=== PATIENT | female | born 1980 | race Caucasian/White ===

== ENCOUNTER 2023-07-09 00:35 | Observation (INO) | payer BC, OTHER ==
--- OUTSIDE RECORDS SUMMARY | 2023-07-09 00:40 | XMS REPORT | Continuity of Care Document ---
Author Name Unknown Address [address] [place] [address] [facility] Address [address] [facility] [place] [address] Care Team Providers Care Picker Packer Name Role Phone Gela Marte Primary Care Physician [phone] MECHELLE PORTER Attending Clinician Unavailable TOMA Attending Clinician Unavailable Monique Attending Clinician Unavailable Mitchell Aldridge MD Attending Clinician [phone] Unknown, Attending Attending Clinician Unavailab MITCHELL Gama Attending Clinician Unavailable Doctor Unassigned, [place] Attending Clinician U navailable Paula Daniel Attending Clinician [phone] PAULA PRIETO Attending Clinician Unavailable Gela Marte Attending Clinician [phone] Omaghomi PLASTIC SURGERY TECHNICIAN Omayemi Attending Clinician [phone] JANES Attending Clinician Unavailable Bette Attending Clinician Unavailable Provider, [facility] Attending Clinician Un available EbrahiLucy Rodriguez Attending Clinician [phone] LUCY YOUNGER Attending Clinician Unavailable ROSANNA_Cain Admitting Clinician Unavailable Monique Admitting Clinician Unavailable JANES Admitting Clinician Unavailable Bette Admitting Clinician Unavailable Payers Payer Name Policy Type Policy Number Effective Date Expirati on Date Source TSHBP 90 DEGREE AND BENEFITS [id number] 2021 00:00[facility]00 [facility] [id number] 2022 00:00:00 [facility] OPEN ACCESS [id number] 2022 00:00:00 [place] [id number] 2019 00:00:00 AETNESSA (EPO) [id number] 2015 00:00:00 Problems Condition Name Condition Details Condition Category Status Onset Date Resolution Date Last Treatment Date Treating Clinician Comments Source Cellulitis of lower limb Cellulitis of Lower Limb Problem Active 06-27 00:00: 00 [facility] Skin lesion Skin Lesion Problem Active 06-27 00:00: 00 [facility] Anxiety Anxiety Problem Active 2022-03 00:00: 00 [facility] Otitis media Otitis Media Problem Active 2022-03 00:00: 00 [facility] Seasonal allergic rhinitis Seasonal Allergic Rhinitis Problem Active 2022-03 0-11 00:00: 00 [facility] Chronic hoarseness Chronic Hoarseness Problem Active 9-21 00:00: 00 [facility] Polycystic ovary syndrome Polycystic ovary syndrome Disease Active 2021-03 1-14 00:00: 00 [facility] Acute sinusitis Acute Sinusitis Problem Active 2019-03 2 00:00: 00 [facility] Loss of sense of smell Loss of Sense of Smell Problem Active 2019-03 2 00:00: 00 [facility] Asthmatic bronchitis Asthmatic Bronchitis Problem Active 2019-03 1-19 00:00: 00 [facility] Vitamin D deficiency Vitamin D Deficiency Problem Active 2018-03 0- 00:00: 00 [facility] Hyperlipid emia Hyperlipid emia Problem Active 2018-03 0 00:00: 00 [facility] Hypothyroi dism Hypothyroi dism Problem Active 06-16 00:00: 00 [facility] Abscess Abscess Problem Active 06-16 00:00: 00 [facility] Acute otitis media Acute Otitis Media Problem Active 18 00:00: 00 [facility] Attention deficit hyperactiv ity disorder Attention Deficit Hyperactiv ity Disorder Problem Active 10-14 00:00: 00 [place] [facility] Vitamin B12 deficiency (non anemic) Vitamin B12 Deficiency (Non Anemic) Problem Active 09-07 00:00: 00 [place] [facility] Obstructiv e sleep apnea syndrome Obstructiv e Sleep Apnea Syndrome Problem Active 09-07 00:00: 00 [place] [facility] Malaise Malaise Problem Active 09-07 00:00: 00 [place] [facility] 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 Problem Active 08-17 00:00: 00 [place] [facility] Snoring Snoring Problem Active 08-17 00:00: 00 [place] [facility] Long-term drug therapy Long-term Drug Therapy Problem Active 08-17 00:00: 00 [place] [facility] Pain of right wrist Pain of Right Wrist Problem Active 08-17 00:00: 00 [place] [facility] Polycystic ovaries Polycystic Ovaries Problem Active 08-17 00:00: 00 [place] [facility] No known active problems No known active problems Disease [facility] Allergies, Adverse Reactions, Alerts Allergy Name Allergy Type Status Severity Reaction(s) Onset Date Inactive Date Treating Clinician Comments Source Sulfa (Sulfona mide Antibiot ics) Propensi ty to adverse reaction s Active Nausea and/or Vomiting 2019-03 00:00: 00 [facility] Penicill in Propensi ty to adverse reaction s Active Nausea and/or Vomiting 2019-03 00:00: 00 [facility] Sulfa (Sulfona mide Antibiot ics) Propensi ty to adverse reaction s Active Nausea and/or Vomiting 2019-03 00:00: 00 [facility] PENICILL IN DRUG INGREDI Active High N/V 2019-03 00:00: 00 [facility] SULFA (SULFONA MIDE ANTIBIOT ICS) Drug Class Active High N/V 2019-03 00:00: 00 [facility] NO KNOWN ALLERGIE S Drug Class Active [facility] PENICILL INS Allergy to substanc e Active [facility] SULFA (SULFONA MIDE ANTIBIOT ICS) Allergy to substanc e Active Moderate severity Rash [facility] Social History Social Habit Start Date Stop Date Quantity Comments [facility] of [facility] use Cigarette Smoker [facility] History SDOH Alcohol Comment [place] [facility] Exposure to SARS-CoV-2 (event) 2022-05-08 00:00:00 2022-05-18 13:16:[address] [facility] Alcohol intake 2022-05-18 00:00:00 2022-05-18 00:00:00 Lifetime non-drinker (finding) [facility] History of Social function 2022-04-02 00:00:00 2022-04-02 00:00:00 [facility] History SDOH Alcohol Std Drinks 2020-01-30 00:00:00 2020-01-30 00:00:[address] [facility] History SDOH Alcohol Binge 2020-01-30 00:00:00 2020-01-30 00:00:[address] [facility] History SDOH Alcohol Frequency 2020-01-30 00:00:00 2020-01-30 00:00:[address] [facility] Cigarettes smoked current (pack per day) - Reported 2020-01-29 00:00:00 2020-01-29 00:00:00 [facility] Tobacco use and exposure 2020-01-29 00:00:00 2020-01-29 00:00:00 Smokeless tobacco non-user [facility] Sex Assigned At 1980 00:00:00 1980 00:00:00 [facility] Smoking Status Start Date Stop Date Source Former Smoker [facility] Smokes tobacco daily 2020-01-29 00:00:00 [facility] Medications Ordered Medication Name Filled Medication Name Start Date Stop Date Current Medication? Ordering Clinician Indication Dosage Frequency Signature (SIG) Comments Components Source collagenase (SANTYL) 250 unit/gram ointment 07-06 00:00: 00 Yes [id number] Apply to affected area(s) daily. [facility] ceftriaxone 1 gram solution for injectionTa ke 1 g by injection route. ceftriaxone 1 gram solution for injectionTa ke 1 g by injection route. 07-05 14:43: 23 No ceftriaxon e 1 gram solution for injectionT dana 1 g by injection route. [facility] ceftriaxone 1 gram solution for injection Take 1 g by injection route. ceftriaxone 1 gram solution for injection Take 1 g by injection route. 07-04 17:41: 55 No 1g ceftriaxon e 1 gram solution for injection Take 1 g by injection route. [facility] benzonatate 100 mg capsule 05-18 00:00: 00 Yes [id number] 200mg Take 2 capsules by mouth every 8 (eight) hours as needed for Cough. [facility] doxycycline hyclate 100 mg tablet 05-18 00:00: 00 05-29 05:59 :00 No [id number] 100mg Take 1 tablet by mouth in the morning and 1 tablet in the evening. Do all this for 10 days. [facility] cephALEXin 500 mg tablet 04-02 00:00: 00 04-10 05:59 :00 No [id number] 500mg Take 1 tablet by mouth 4 (four) times daily for 7 days. [facility] ondansetron 4 mg disintegrat ing tablet 03-31 00:00: 00 04-02 00:00 :00 No [id number] 4mg Take 1 tablet by mouth every 8 (eight) hours as needed for Nausea and Vomiting (N/V). [facility] cephALEXin (KEFLEX) 500 mg capsule 2019-03 00:00: 00 02-14 05:59 :00 No [id number] 500mg Take 1 capsule by mouth 4 (four) times daily for 10 days. [facility] codeine-gua ifenesin 10-100 mg/5 mL solution 2019-03 00:00: 00 02-11 05:59 :00 No 10mL Take 10 mL by mouth every 6 (six) hours as needed for Cough for up to 7 days. Indication s: cough [facility] methylPREDN ISolone (MEDROL, DENAE,) 4 mg tablets 2019-03 00:00: 00 04-02 00:00 :00 No [id number] Take by mouth SEE-INSTRU CTIONS. follow package directions [facility] bromphenira mine-pseudo ephedrine-D M (BROMFED DM) 2-30-10 mg/5 mL syrup 2019-03 00:00: 00 02-08 05:59 :00 No [id number] 5mL Take 5 mL by mouth 4 (four) times daily as needed (zofra) for up to 10 days. [facility] ondansetron (ZOFRAN ODT) 4 mg disintegrat ing tablet 2019-03 00:00: 00 02-05 05:59 :00 No [id number] 4mg Take 1 tablet by mouth every 8 (eight) hours as needed for Nausea and Vomiting (N/V) for up to 7 days. [facility] albuterol sulfate HFA 90 mcg/actuati on aerosol inhaler TAKE 2 PUFF(S) INHALED 4 TIMES A DAY, NEEDED FOR WHEEZING albuterol sulfate HFA 90 mcg/actuati on aerosol inhaler TAKE 2 PUFF(S) INHALED 4 TIMES A DAY, NEEDED FOR WHEEZING No albuterol sulfate HFA 90 mcg/actuat ion aerosol inhaler TAKE 2 PUFF(S) INHALED 4 TIMES A DAY, NEEDED FOR WHEEZING [facility] 0.5 mg tablet TAKE 1/2-1 TABLET BY MOUTH EVERY 6 TO 8 HOURS NEEDED FOR EXTREME STRESS alprazolam 0.5 mg tablet TAKE 1/2-1 TABLET BY MOUTH EVERY 6 TO 8 HOURS NEEDED FOR EXTREME STRESS No alprazolam 0.5 mg tablet TAKE 1/2-1 TABLET BY MOUTH EVERY 6 TO 8 HOURS NEEDED FOR EXTREME STRESS [facility] clindamycin HCl 300 mg capsule TAKE 1 CAPSULE BY MOUTH EVERY 6 HOURS clindamycin HCl 300 mg capsule TAKE 1 CAPSULE BY MOUTH EVERY 6 HOURS No clindamyci n HCl 300 mg capsule TAKE 1 CAPSULE BY MOUTH EVERY 6 HOURS [facility] doxycycline hyclate 100 mg capsule TAKE 1 CAPSULE BY MOUTH TWICE A DAY doxycycline hyclate 100 mg capsule TAKE 1 CAPSULE BY MOUTH TWICE A DAY No 1capsul e(s) BID doxycyclin e hyclate 100 mg capsule TAKE 1 CAPSULE BY MOUTH TWICE A DAY [facility] metronidazo le 0.75 % (37.5 mg/5 gram) vaginal gel INSERT 1 APPLICATORF UL VAGINALLY EVERY DAY AT NIGHT metronidazo le 0.75 % (37.5 mg/5 gram) vaginal gel INSERT 1 APPLICATORF UL VAGINALLY EVERY DAY AT NIGHT No metronidaz ole 0.75 % (37.5 mg/5 gram) vaginal gel INSERT 1 APPLICATOR FUL VAGINALLY EVERY DAY AT NIGHT [facility] montelukast 10 mg tablet TAKE 1 TABLET BY MOUTH EVERY DAY montelukast 10 mg tablet TAKE 1 TABLET BY MOUTH EVERY DAY No montelukas t 10 mg tablet TAKE 1 TABLET BY MOUTH EVERY DAY [facility] mupirocin 2 % topical ointment APPLY A SMALL AMOUNT TO THE AFFECTED AREA BY TOPICAL ROUTE 3 TIMES PER DAY mupirocin 2 % topical ointment APPLY A SMALL AMOUNT TO THE AFFECTED AREA BY TOPICAL ROUTE 3 TIMES PER DAY No mupirocin 2 % topical ointment APPLY A SMALL AMOUNT TO THE AFFECTED AREA BY TOPICAL ROUTE 3 TIMES PER DAY [facility] bupropion HCl XL 150 mg 24 hr tablet, extended release TAKE 1 TABLET EVERY DAY BY ORAL ROUTE IN THE MORNING. bupropion HCl XL 150 mg 24 hr tablet, extended release TAKE 1 TABLET EVERY DAY BY ORAL ROUTE IN THE MORNING. No bupropion HCl XL 150 mg 24 hr tablet, extended release TAKE 1 TABLET EVERY DAY BY ORAL ROUTE IN THE MORNING. [facility] Immunizations Ordered Immunization Name Filled Immunization Name Date Status Comments Source influenza, injectable, quadrivalent influenza, injectable, quadrivalent Unknown Completed [facility] Vital Signs Vital Name Observation Time Observation Value Comments S ource Systolic blood pressure 2023-07-07 18:09:00 156 mm[Hg] [facility] Diastolic blood pressure 2023-07-07 18:09:00 84 mm[Hg] [facility] Heart rate 2023-07-07 18:09:00 105 /min [facility] Body temperature 2023-07-07 18:09:[address] [facility] Respiratory rate 2023-07-07 18:09:00 18 /min [facility] Body height 2023-07-07 18:09:00 152.4 cm [facility] Body weight 2023-07-07 18:09:00 113.399 kg [facility] BMI 2023-07-07 18:09:00 48.82 kg/m2 [facility] Oxygen saturation in Arterial blood by Pulse oximetry 2023-07-07 18:09:00 97 /min [facility] BP Systolic 2023-07-05 00:00:00 150 mm[Hg] [facility] BP Diastolic 2023-07-05 00:00:00 80 mm[Hg] [facility] Height 2023-07-05 00:00:00 60 [in_i] [facility] BMI (Body Mass Index) 2023-07-05 00:00:00 48.8 kg/m2 [facility] Body Weight 2023-07-05 00:00:00 4000 [oz_av] [facility] BP Systolic 2023-06-28 00:00:00 138 mm[Hg] [facility] Body Weight 2023-06-28 00:00:00 4009.6 [oz_av] [facility] Height 2023-06-28 00:00:00 60 [in_i] [facility] BMI (Body Mass Index) 2023-06-28 00:00:00 48.9 kg/m2 [facility] BP Diastolic 2023-06-28 00:00:00 74 mm[Hg] [facility] BP Diastolic 2023-04-29 00:00:00 70 mm[Hg] [facility] Body Weight 2023-04-29 00:00:00 4096 [oz_av] [facility] BP Systolic 2023-04-29 00:00:00 140 mm[Hg] [facility] Height 2023-04-29 00:00:00 60 [in_i] [facility] BMI (Body Mass Index) 2023-04-29 00:00:00 50 kg/m2 [facility] BP Systolic 2023-04-05 00:00:00 146 mm[Hg] [facility] Height 2023-04-05 00:00:00 60 [in_i] [facility] Body Weight 2023-04-05 00:00:00 3984 [oz_av] [facility] BMI (Body Mass Index) 2023-04-05 00:00:00 48.6 kg/m2 [facility] BP Diastolic 2023-04-05 00:00:00 62 mm[Hg] [facility] Height 2023-02-22 00:00:00 60 [in_i] [facility] BP Systolic 2023-02-22 00:00:00 140 mm[Hg] [facility] Body Weight 2023-02-22 00:00:00 3916.8 [oz_av] [facility] BP Diastolic 2023-02-22 00:00:00 68 mm[Hg] [facility] BMI (Body Mass Index) 2023-02-22 00:00:00 47.8 kg/m2 [facility] BP Diastolic 2023-01-20 00:00:00 66 mm[Hg] [facility] Body Weight 2023-01-20 00:00:00 3808 [oz_av] [facility] BP Systolic 2023-01-20 00:00:00 138 mm[Hg] [facility] BMI (Body Mass Index) 2023-01-20 00:00:00 46.5 kg/m2 [facility] Height 2023-01-20 00:00:00 60 [in_i] [facility] BP Diastolic 2022-12-30 00:00:00 78 mm[Hg] [facility] BP Systolic 2022-12-30 00:00:00 130 mm[Hg] [facility] Body Weight 2022-12-30 00:00:00 3766.4 [oz_av] [facility] BMI (Body Mass Index) 2022-12-30 00:00:00 46 kg/m2 [facility] Height 2022-12-30 00:00:00 60 [in_i] [facility] Height 2022-12-10 00:00:00 60 [in_i] [facility] Body Weight 2022-12-10 00:00:00 3945.6 [oz_av] [facility] BP Systolic 2022-12-10 00:00:00 130 mm[Hg] [facility] BMI (Body Mass Index) 2022-12-10 00:00:00 48.2 kg/m2 [facility] BP Diastolic 2022-12-10 00:00:00 80 mm[Hg] [facility] Systolic blood pressure 2022-05-18 19:34:00 147 mm[Hg] [facility] Diastolic blood pressure 2022-05-18 19:34:00 87 mm[Hg] [facility] Heart rate 2022-05-18 19:33:00 88 /min [facility] Body temperature 2022-05-18 19:33:[address] [facility] Respiratory rate 2022-05-18 19:33:00 17 /min [facility] Body height 2022-05-18 19:33:00 154.9 cm [facility] Body weight 2022-05-18 19:33:00 112.764 kg [facility] BMI 2022-05-18 19:33:00 46.97 kg/m2 [facility] Oxygen saturation in Arterial blood by Pulse oximetry 2022-05-18 19:33:00 97 /min [facility] Systolic blood pressure 2022-04-03 01:04:00 127 mm[Hg] [facility] Diastolic blood pressure 2022-04-03 01:04:00 80 mm[Hg] [facility] Heart rate 2022-04-03 01:04:00 104 /min [facility] Body temperature 2022-04-03 01:04:[address] [facility] Respiratory rate 2022-04-03 01:04:00 18 /min [facility] Body height 2022-04-03 01:04:00 154.9 cm [facility] Body weight 2022-04-03 01:04:00 116.212 kg [facility] BMI 2022-04-03 01:04:00 48.41 kg/m2 [facility] Oxygen saturation in Arterial blood by Pulse oximetry 2022-04-03 01:04:00 99 /min [facility] Body height 2021-03-31 18:57:00 154.9 cm Univ [facility] Body weight 2021-03-31 18:57:00 110.309 kg [facility] BMI 2021-03-31 18:57:00 45.95 kg/m2 [facility] Oxygen saturation in Arterial blood by Pulse oximetry 2021-03-31 18:57:00 98 /min [facility] Systolic blood pressure 2021-03-31 18:57:00 146 mm[Hg] [facility] Diastolic blood pressure 2021-03-31 18:57:00 80 mm[Hg] [facility] Heart rate 2021-03-31 18:57:00 105 /min [facility] Body temperature 2021-03-31 18:57:[address] [facility] Respiratory rate 2021-03-31 18:57:00 18 /min [facility] Systolic blood pressure 2020-02-04 22:05:00 129 mm[Hg] [facility] Diastolic blood pressure 2020-02-04 22:05:00 87 mm[Hg] [facility] Heart rate 2020-02-04 22:05:00 87 /min [facility] Body temperature 2020-02-04 22:02:[address] [facility] Respiratory rate 2020-02-04 22:02:00 18 /min [facility] Body height 2020-02-04 22:02:00 154.9 cm [facility] Body weight 2020-02-04 22:02:00 107.956 kg [facility] BMI 2020-02-04 22:02:00 44.97 kg/m2 [facility] Oxygen saturation in Arterial blood by Pulse oximetry 2020-02-04 22:02:00 96 /min [facility] Systolic blood pressure 2020-01-30 01:52:00 142 mm[Hg] [facility] Diastolic blood pressure 2020-01-30 01:52:00 93 mm[Hg] [facility] Heart rate 2020-01-30 01:52:00 86 /min [facility] Body temperature 2020-01-30 01:48:[address] [facility] Respiratory rate 2020-01-30 01:48:00 20 /min [facility] Body height 2020-01-30 01:48:00 152.4 cm [facility] Body weight 2020-01-30 01:48:00 97.523 kg [facility] BMI 2020-01-30 01:48:00 41.99 kg/m2 [facility] Oxygen saturation in Arterial blood by Pulse oximetry 2020-01-30 01:48:00 98 /min [facility] Procedures Procedure Date / Time Performed Performing Clinician Source COMP. METABOLIC PANEL (99708) 2023-07-07 19:10:[address] [facility] CBC WITH DIFF 2023-07-07 19:10:00 Mechelle Porter [facility] URINALYSIS 2023-07-07 19:10:00 Mechelle Porter [facility] XR, ankle, 2 view 2023-07-05 00:00:00 [facility] PATIENT FINANCIAL POLICY 2022-05-18 19:18:39 Doctor Unassigned, [place] [facility] ASSIGNMENT OF BENEFITS 2022-04-03 00:46:25 Docto r Unassigned, [place]il[place] [facility] ASSIGNMENT OF BENEFITS 2021-03-31 18:48:40 Docto r Unassigned, [place]il[place] [facility] COVID-19 (MOLECULAR TESTING NUCLEIC ACID AMPLIFICATION) 2020-01-30 01:34:[address] [facility] Cholecystectomy 2002-03-22 00:00:00 [facility] Caesarean Section [facility] Plan of Care Planned Activity Planned Date Details Comments Source Future Appointment 2023-07-19 14:00:00 Gela alfaro, Michele [address] [place] [address] [facility] Encounters Start Date/Time End Date/Time Encounter Type Admission Type Attending Clinicians Care Facility Care Department Encounter ID Source 2023-07-07 13:10:00 2023-07-07 15:53:00 Emergency X [facility] ERT [id number] [facility] 2023-07-07 13:10:00 2023-07-07 15:53:00 Emergency Matt[facility]binMechelle [facility] [id number] [facility] 2023-07-06 00:00:00 2023-07-06 00:00:00 Gela Marte MD: [address]ul [address], [address], [place] [address] , Ph. [facility], [address] MARTE [id number] [facility] 2023-07-05 00:00:00 2023-07-05 00:00:00 Gela Marte MD: [address]ul [address], [address], [place] [address] , Ph. [facility], [address] MARTE [id number] [address] [facility] 2023-06-28 00:00:00 2023-06-28 00:00:00 Gela Marte MD: Mukul [address], [place] [address] , Ph. [facility], [address] MARTE 4186- [phone] [facility] 2023-06-01 00:00:00 2023-06-01 00:00:00 Outpatient [facility] [id number] [facility] 2023-04-29 00:00:00 2023-04-29 00:00:00 Outpatient [facility] [id number] [facility] 2023-04-29 00:00:00 2023-04-29 00:00:00 Gela Marte MD: [address]ul [address], [place] [address] , Ph. [facility], [address] MARTE [id number] [facility] 2023-04-05 00:00:00 2023-04-05 00:00:00 Outpatient ROSANNA[facility] [id number] [facility] 2023-04-05 00:00:00 2023-04-05 00:00:00 Gela Marte MD: Mukul Ko[address], [place] [address] , Ph. [facility], [address]. MARTE [id number] [facility] 2023-02-22 00:00:00 2023-02-22 00:00:00 Outpatient [facility] [id number] [facility] 2023-02-22 00:00:00 2023-02-22 00:00:00 Gela Marte MD: Mukul Ko[address], [place] [address] , Ph. [facility], [address]. MARTE [id number] [facility] 2023-02-16 00:00:00 2023-02-16 00:00:00 Outpatient [facility] [id number] [facility] 2023-01-20 00:00:00 2023-01-20 00:00:00 Outpatient [facility] [id number] [facility] 2023-01-20 00:00:00 2023-01-20 00:00:00 Gela Marte MD: Mukul Koenig, [place] [address] , Ph. [facility], DR. MARTE [id number] [facility] l Clinics 2023-01-12 00:00:00 2023-01-12 00:00:00 Outpatient [facility] [id number] [facility] 2022-12-30 00:00:00 2022-12-30 00:00:00 Outpatient [facility] [id number] [facility] 2022-12-30 00:00:00 2022-12-30 00:00:00 Gela Marte MD: Mukul Koenig, [place] [address] , Ph. [facility], DR. MARTE [id number] [facility] 2022-12-11 00:00:00 2022-12-11 00:00:00 Outpatient [place] G [id number] [facility] 2022-12-11 00:00:00 2022-12-11 00:00:00 [place] [id number] [facility] 2022-12-10 00:00:00 2022-12-10 00:00:00 Outpatient ROSANNA_[facility] [id number] 921 [facility] 2022-12-10 00:00:00 2022-12-10 00:00:00 Outpatient Yan_W MMG MMG [id number] [facility] 2022-12-10 00:00:00 2022-12-10 00:00:00 Gela Marte MD: [facility] [address], [address], [place] [address] , Ph. [facility] - [facility], DR. MARTE [id number] [facility] 2022-06-09 00:00:00 2022-06-09 00:00:00 Refill Mitchell Aldridge [facility] 1.2.840.114 350.1.13.10 4.2.7.2.686 [id number] [facility] 2022-05-18 13:20:00 2022-05-18 13:40:00 Urgent Care Mitchell Aldridge Unknown, Attending [facility] 1.2.840.114 350.1.13.10 4.2.7.2.686 [id number] [facility] 2022-05-18 13:20:00 2022-05-18 13:20:00 Outpatient [facility] [id number] [facility] 2022-05-18 00:00:00 2022-05-18 00:00:00 Orders Only Doctor Unassigned, Shil[place] [address]114 350.1.13.10 4.2.7.2.686 [id number] [facility] 2022-04-02 18:45:00 2022-04-02 19:00:00 Urgent Care Paula Prieto Unknown, Attending [facility] 1.84.114 350.1.13.10 4.2.7.2.686 [id number] [facility] 2022-04-02 18:45:00 2022-04-02 18:45:00 Outpatient [facility] [id number] [facility] 2022-04-02 00:00:00 2022-04-02 00:00:00 Orders Only Doctor Unassigned, Shiloh [facility] 1.840.114 350.1.13.10 4.2.7.2.686 [id number] [facility] 2021-04-01 00:00:00 2021-04-01 00:00:00 Telephone Gela Marte [facility] 1.840.114 350.1.13.10 4.2.7.2.686 [id number] [facility] 2021-03-31 13:00:00 2021-03-31 15:06:22 Outpatient R [facility] [id number] [facility] 2021-03-31 13:00:00 2021-03-31 13:20:00 Urgent Care Mitchell Aldridge Omayemi [facility] 1.840.114 350.1.13.10 4.2.7.2.686 [id number] [facility] 2021-03-31 00:00:00 2021-03-31 00:00:00 Orders Only Doctor Unassigned, Shiloh [facility] 114 350.1.13.10 4.2.7.2.686 [id number] [facility] 2021-02-12 12:52:00 2021-02-12 12:52:00 Outpatient [facility] 112 [facility] 2020-02-21 05:36:00 2020-02-21 05:36:00 Outpatient [facility] 2020-02-21 05:36:00 2020-02-21 05:36:00 Outpatient [facility] 2020-02-07 02:24:00 2020-02-07 02:24:00 Outpatient G_Pappas MMG [facility] [id number] [facility] 2020-02-06 00:00:00 2020-02-06 00:00:00 Telephone Provider, [facility] Urgent Care [facility] .114 350.1.13.10 4.2.7.2.686 [id number] [facility] 2020-02-04 15:54:51 2020-02-04 16:16:57 Urgent Care Provider, Darryl [facility] 114 350.1.13.10 4.2.7.2.686 [id number] [facility] 2020-02-04 16:00:00 2020-02-04 16:00:00 Outpatient [facility] [id number] [facility] 2020-01-30 00:00:00 2020-01-30 00:00:00 Telephone Provider, [facility] Urgent Care [facility] 114 350.1.13.10 4.2.7.2.686 [id number] [facility] 2020-01-29 19:17:50 2020-01-29 19:37:50 Urgent Care Provider, Darryl Urgent Care Lucy Younger [facility] 1.2.840.114 350.1.13.10 4.2.7.2.686 [id number] [facility] 2020-01-29 19:00:00 2020-01-29 19:00:00 Outpatient R [facility] [id number] [facility] Results Test Description Test Time Test Comments Results Result Co mments Source [facility] (42338[facility]2023-07-07 19:52:52* Test Item Value Reference Range Interpretation Comme nts NA (test code = 4451009125) 139 mmol/L 135-145 K (test code = 9805302709) 3.6 mmol/L 3.5-5.0 CL (test code = 1994626591) 107 mmol/L 98-108 CO2 TOTAL (test code = 4161192068) 27 mmol/L 23-31 AGAP (test code = 8103865409) 5 2-16 BUN (test code = 2548406327) 13 mg/dL 7-23 GLUCOSE (test code = 4654833763) 145 mg/dL 70-110 H CREATININE (test code = 2160-0) 0.69 mg/dL 0.50-1.04 TOTAL BILI (test code = 1317939151) 0.4 mg/dL 0.1-1.1 CALCIUM (test code = 0571366049) 8.7 mg/dL 8.6-10.6 T PROTEIN (test code = 9158918896) 6.5 g/dL 6.3-8.2 ALBUMIN (test code = 4530648750) 3.7 g/dL 3.5-5.0 ALK PHOS (test code = 1949795345) 105 U/L 34-122 ALTv (test code = 1742-6) 29 U/L 5-35 AST(SGOT) (test code = 1004482141) 26 U/L 13-40 eGFR (test code = 18538-5) 109.9 mL/min/1.73m2 CKD-EPI eGFR (2020). Assuming creatinine has been stable day-to-day for at least three months, the eGFR indicates Category G1 (>= 90 mL/min/1.73 m2) Lab Interpretation (test code = 63877-2) Abnormal [facility] (MOLECULAR TESTING NUCLEIC ACID AMPLIFICATION)2020-01-30 18:33:00* Test Item Value Reference Range Interpretation Comme nts SARS-CoV-2 NAAT (test code = 06314-7) Not Detected Not Detected MIGUEL (test code = MIGUEL) [employer] SARS-CoV-2 Assay is a nucleic acid amplification test intended for the qualitative detection of RNA from SARS-CoV-2 from nasopharyngeal (WILDLAND FIRE FIGHTER SPECIALIST) specimens. ?It is used under Emergency Use Authorization (EUA) by FDA. A positive result is indicative of the presence of SARS-CoV-2 RNA. ?Clinical correlation with patient history and other diagnostic information is necessary to determine patient infection status. A negative (Not Detected) result does not preclude SARS-CoV-2 infection. ?Clinical correlation with patient history and other diagnostic information should be used in patient management decisions. Invalid: Unable to generate a valid test result on this specimen. ?Please submit a new specimen for repeat testing if clinically indicated. Lab Interpretation (test code = 78539-9) Normal [facility] Notes Date/Time Note Provider Source 2023-07-07 15:53:03 Wm16jdwQV3A80husW8qS JuOx3pojeibs7o Tc6H1RgRf+pml2oVmKt+R+ajb1fTVt9385 -04-17T15:53:03 Pt discharged with diagnosis of spider bite wound. Printed and verbal instructions reviewed with and given to patient. Prescriptions given x 1. Pt verbalized understanding of teaching, medication, and recommended follow-up. Denies questions or concerns at this time. Pt ambulatory at discharge. Appears in no apparent distress. No ataxia noted. 10856-2Fgsbptzpg department MhsfWL5988-97-89K92:53:24Emergency department NoteTXT1.2.840.406837.1.13.104.2.7 .2.159989|[id number] for patient hmtf62001-2GpfsZPSKBQUAUXPYzakplnc d C-CDA narrative [id number] N Prince RNUT[address]TXTX[address]75 32AMVFWWKQTJVMXWEHYLEEXE7879-69-79 T15:53:241.2.840.677395.1.72.3.15| 1.2.840.784716.1.13.104.2.7.2.7278 [id number] Callie Morrison RN [facility] 2023-07-07 13:07:03 JPAioVOZL6sjUEotvcNi yM3pEaKibNPI7R lltxRPgiWNK0qEb2wB3pn8lQAXm7MT1842 -04-17T13:07:03 Patient arrived c/o a bite from a bug that caused redness surrounding the bite and pain. Bite jonathan is black. First bite noticed 2 weeks ago. Went to urgent care and given clindamycin finishing it yesterday morning. Went to pcp then given doxycycline. Given several shots of rocephin as well. The jonathan still hurts and started to swell. 67127-7Rxnzkltwl department Triage qcmcIQ0098-39-13P93:09:43Emepeacehealth department Triage noteTXT1.2.840.604963.1.13.104.2.7 .2.152166|[id number] for patient jsgt34238-4Eafewvsgx department NoteLNNARRATIVEFormatted C-CDA narrative [id number] M Felix RNUT[id number] 34WBHUGMTXZZVBHYFDNNODGC6916-44-60 T13:09:431.2.840.448990.1.72.3.15| 1.2.840.418117.1.13.104.2.7.2.7278 [id number] Arabella Esteves RN [facility] 2023-07-07 13:01:22 ZQ0O1OLY4zELP6pt2mYW f7ekxZI2HnnwAQ Fet4uyJgAhM/mHpONhy8ubxOd41RQ42565 -04-17T13:01:22 Attempted to call patient from [employer]. No response. Registration says patient is in the restroom. 71922-6Bprlrbfrl department QujsSN3731-45-04D92:01:40Emergency department NoteTXT1.2.840.252768.1.13.104.2.7 .2.948186|[id number] for patient sowi24167-7EqklJRVBXIAVCAFEmrsnjzo d C-CDA narrative text[address] Kvsy[id number] 92RKVXJKFLUWRNOCMSXGWKSY3057-97-68 T13:01:401.2.840.816440.1.72.3.15| 1.2.840.998319.1.13.104.2.7.2.7278 [id number] [facility]"
[2023-07-09 01:28] LABS: Absolute Basophils 0.1 K/uL (0-0.5); Absolute Eosinophils 0.2 K/uL (0-0.5); Absolute Lymphocytes (CBC) 3.3 K/uL (0.7-4.9); Absolute Monocytes 0.7 K/uL (0.1-1.3); Absolute Neutrophil 6.5 K/uL (1.8-8.0); Basophils % 1.3 % (0-1.3); Eosinophils % 2.1 % (0-4.4); Hematocrit 37.8 % (36.0-45.0); Hemoglobin 13.2 g/dL (12.0-15.0); Lymphocytes % 30.4 % (15.3-44.8); MCH 32.4 pg (27.0-35.0); MCHC 34.8 g/dL (32.0-36.0); MCV 92.9 fL (80-100); MPV 7.5 fL (7.6-11.3); Monocytes % 6.3 % (3.3-12.3); Neutrophils % 59.9 % (41.7-73.7); Nucleated Red Blood Cells % 0.2 % (0-0); Platelets 251 thou/uL (152-406); RBC Red Blood Cell Count 4.07 M/uL (3.86-4.86); Red Cell Distribution Width 14.5 % (12.1-15.2)
[2023-07-09] MEDS ORDERED: NA CHLORIDE 0.9% 250 ML ONE ×2 (01:32→04:30)
[2023-07-09] MEDS ORDERED: VANCOMYCIN 1 GM/VIAL ONE ×2 (01:32→04:30)
[2023-07-09 01:45] LABS: Specific Gravity > 1.030 (1.005-1.030)
[2023-07-09 01:49] LABS: Anion Gap 8.3 mEq/L (5.0-15.0)
[2023-07-09 01:59] LABS: Potassium 4.3 mEq/L (3.5-5.1)
--- NOTE | 2023-07-09 02:02 | EDPHYS ---
Physician Documentation [facility] Name: Hilda Xie Age: 42 yrs Sex: Female : 1980 Arrival Date: 07/09/2023 Time: 00:35 Bed 18 Private MD: ED Physician Bert Stevenson HPI: 07/08 00:56 This 42 yrs old Female presents to ER via Unassigned with complaints of ec2 spider bite x2wks. 00:56 Patient arrives today for evaluation of a wound to the left lateral aspect of the ec2 ankle. Patient reports that she has been treated with antibiotics for the past 11 days. Patient reports that she suspect she was bitten by a spider. Has been taking clindamycin, has transition to doxycycline. Patient reports no fevers or chills, no nausea or vomiting. States that the wound has been poorly healing and still remains red and irritated.. 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 - Infectious Disease History:: Denies. - Social history:: Smoking status: Patient reports the use of cigarette tobacco products, smokes one-half pack cigarettes per day. ROS: 00:56 Constitutional: as per hpi ec2 Exam: 00:56 Constitutional: GEN: NAD Head: atraumatic Eyes: EOMI Ears: External ears are ec2 normal. CV: regular rate LUNGS: no respiratory distress ABD: non-distended SKIN: Left lateral malleolus with small wound with drainage appreciated, surrounding erythema and warmth noted. MSK: no evidence of trauma NEURO: moves all extremities equally Vital Signs: 00:58 BP 142 / 76; Pulse 96; Resp 16; Temp 98.8(O); Pulse Ox 98% on R/A; Weight 113.4 kg (R); jb4 Height 5 ft. 1 in. ; Pain 5/10; 02:20 Pulse 83; Pulse Ox 95% on R/A; tm6 02:20 BP 125 / 62; Pulse 81; Resp 17 S; Pulse Ox 96% on R/A; ha1 03:32 BP 126 / 66; Pulse 72; Resp 18; Pulse Ox 96% ; Pain 0/10; ha1 15:00 BP 124 / 64; Pulse 74; Resp 16; Temp 98.4; Pulse Ox 100% on R/A; me1 00:58 Body Mass Index 47.24 (113.40 kg, 154.94 cm) jb4 00:58 Pain Scale: Adult jb4 03:32 Pain Scale: Adult ha1 MDM: 00:45 Patient medically screened. ec2 00:56 Data reviewed: vital signs. ED course: Patient arrives today for evaluation of a wound ec2 to the left lateral aspect of the ankle. Examination remarkable for skin findings as above. Given the patient has failed outpatient therapy x 2, I will obtain lab work and admit the patient for cellulitis. Will obtain lab work, give the patient antibiotics, obtain x-ray of the area as well. . 07/08 00:53 Order name: CBC with Diff; Complete Time: 01:48 ec2 07/08 00:53 Order name: BMP; Complete Time: 02:01 ec2 07/08 00:53 Order name: Test, Urine; Complete Time: 01:48 ec2 07/08 02:47 Order name: Urinalysis w/ reflexes EDMS 07/08 02:47 Order name: CBC with Automated Diff EDMS 07/08 02:47 Order name: CBC with Automated Diff EDMS 07/08 02:47 Order name: Comprehensive Metabolic Panel EDMS 07/08 02:47 Order name: Comprehensive Metabolic Panel EDMS 07/08 02:48 Order name: Vancomycin Level Trough EDMS 07/08 01:04 Order name: Ankle Left 3 View XRAY ec2 07/08 13:34 Order name: CT EDMS Administered Medications: 02:19 Drug: vancoMYCIN IVPB 1 grams IVPB once over 2 hrs Route: IVPB; Infused Over: 2 hrs; tm6 Site: left forearm; 04:00 Follow up: Response: No adverse reaction; IV Status: Completed infusion; IV Intake: ha1 250ml 07:56 Not Given (Patient Refused): nicoderm cqpatch 21 mg/24 hr 1 patches Transdermal once ll1 Disposition Summary: 07/09/23 02:02 Hospitalization Ordered Notes: Hospitalization Status: Inpatient Admission ec2 Provider: Xiang James ec2 Condition: Stable ec2 Problem: an ongoing problem ec2 Symptoms: are unchanged ec2 Bed/Room Type: Standard ec2 Location: [facility] ER HOLD(07/09/23 04:32) jb4 Room Assignment: ERHOLD-(07/09/23 04:32) jb4 Diagnosis - Cellulitis of left lower limb ec2 Forms: - Medication Reconciliation Form ec2 - SBAR form ec2 - Leadership Thank You Letter ec2 Signatures: Dispatcher [employer] EDMS Walter Banegas, RN RN jb4 Bert Stevenson MD MD ec2 Talib Wilks RN RN tm6 Haroon Philip RN 1 Emilie Grimm RN 1 Corrections: (The following items were deleted from the chart) 01:02 01:01 Allergies: No Known Allergies; jb4 jb4 01:04 01:04 Ankle Left 3 View+RAD.RAD.BRZ ordered. EDCT EDCT 04:32 02:02 Telemetry/MedSurg (Inpatient) ec2 jb4 04:32 02:02 ec2 jb4
--- NOTE | 2023-07-09 02:02 | ER ---
Nurse's Notes [facility] Name: Hilda Xie Age: 42 yrs Sex: Female : 1980 Arrival Date: 07/09/2023 Time: 00:35 Bed 18 Private MD: Diagnosis: Cellulitis of left lower limb Presentation: 07/08 00:58 Chief complaint: Patient states: I have a spider bite on my left leg, I have been jb4 taking antibiotics for it and it isn't been getting better over the past 2 weeks advised to come to ER. I took 800mg of motrin 1 hour ago. Coronavirus screen: At this time, the client does not indicate any symptoms associated with coronavirus-19. Ebola Screen: No symptoms or risks identified at this time. Initial Sepsis Screen: Does the patient meet any 2 criteria? No. Patient's initial sepsis screen is negative. Does the patient have a suspected source of infection? No. Patient's initial sepsis screen is negative. Risk Assessment: Do you want to hurt yourself or someone else? Patient reports no desire to harm self or others. Onset of symptoms was June 25, 2023. Transition of care: patient was not received from another setting of care. 00:58 Method Of Arrival: Ambulatory jb4 00:58 Acuity: REYNALDO 3 jb4 Triage Assessment: 01:01 General: Appears in no apparent distress. uncomfortable, Behavior is calm, cooperative. jb4 Pain: Complains of pain in left Achilles Pain does not radiate. Pain currently is 5 out of 10 on a pain scale. Quality of pain is described as burning. Neuro: Level of Consciousness is awake, alert, obeys commands, Oriented to person, place, time, situation. Cardiovascular: Patient's skin is warm and dry. Respiratory: Airway is patent Respiratory effort is even, unlabored, Respiratory pattern is regular, symmetrical. Derm: Skin is intact, Skin is pink, warm \T\ dry. Musculoskeletal: Circulation, motion, and sensation intact. Range of motion: intact in all extremities. 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 - Infectious Disease History:: Denies. - Social history:: Smoking status: Patient reports the use of cigarette tobacco products, smokes one-half pack cigarettes per day. Screenin:43 [facility] ED Fall Risk Assessment (Adult) History of falling in the last 3 months, tm6 including since admission No falls in past 3 months (0 pts) Confusion or Disorientation No (0 pts) Intoxicated or Sedated No (0 pts) Impaired Gait No (0 pts) Mobility Assist Device Used No (0 pt) Altered Elimination No (0 pt) Score/Fall Risk Level 0 - 2 = Low Risk Oriented to surroundings, Maintained a safe environment. Abuse screen: Denies threats or abuse. Denies injuries from another. Nutritional screening: No deficits noted. Tuberculosis screening: No symptoms or risk factors identified. Assessment: 01:43 General: Appears in no apparent distress. Behavior is calm, cooperative. Pain: tm6 Complains of pain in left leg Pain currently is 7 out of 10 on a pain scale. Quality of pain is described as burning. Neuro: Level of Consciousness is awake, alert, obeys commands, Oriented to person, place, time, situation. Cardiovascular: No deficits noted. Patient's skin is warm and dry. Respiratory: Airway is patent Respiratory effort is even, unlabored, Respiratory pattern is regular, symmetrical. GI: No signs and/or symptoms were reported involving the gastrointestinal system. Abdomen is round non-distended. : No signs and/or symptoms were reported regarding the genitourinary system. EENT: No signs and/or symptoms were reported regarding the EENT system. Derm:. Derm: Skin has lesions on left outer ankle Reports burning. Musculoskeletal: No signs and/or symptoms reported regarding the musculoskeletal system. 02:44 Reassessment: Patient and/or family updated on plan of care and expected duration. Pain ha1 level reassessed. Patient is alert, oriented x 3, equal unlabored respirations, skin warm/dry/pink. 03:50 Reassessment: Patient and/or family updated on plan of care and expected duration. Pain ha1 level reassessed. Patient is alert, oriented x 3, equal unlabored respirations, skin warm/dry/pink. Vital Signs: 00:58 BP 142 / 76; Pulse 96; Resp 16; Temp 98.8(O); Pulse Ox 98% on R/A; Weight 113.4 kg (R); jb4 Height 5 ft. 1 in. ; Pain 5/10; 02:20 Pulse 83; Pulse Ox 95% on R/A; tm6 02:20 BP 125 / 62; Pulse 81; Resp 17 S; Pulse Ox 96% on R/A; ha1 03:32 BP 126 / 66; Pulse 72; Resp 18; Pulse Ox 96% ; Pain 0/10; ha1 15:00 BP 124 / 64; Pulse 74; Resp 16; Temp 98.4; Pulse Ox 100% on R/A; me1 00:58 Body Mass Index 47.24 (113.40 kg, 154.94 cm) jb4 00:58 Pain Scale: Adult jb4 03:32 Pain Scale: Adult ha1 ED Course: 00:44 Patient arrived in ED. ra3 00:44 Bert Stevenson MD is Attending Physician. ec2 00:55 Patient's name was called from ER lobby. No response. jb4 01:00 Triage completed. jb4 01:01 Arm band placed on left wrist. jb4 01:24 BMP Sent. vk 01:24 CBC with Diff Sent. vk 01:24 Inserted saline lock: 22 gauge in left forearm, using aseptic technique. vk 01:24 Initial lab(s) drawn, by ED staff, sent to lab. vk 01:26 Talib Wilks, RN is Primary Nurse. tm6 01:38 Ankle Left 3 View XRAY In Process Unspecified. EDMS 01:43 Patient has correct armband on for positive identification. Placed in gown. Bed in low tm6 position. Call light in reach. Side rails up X 1. Provided Education on: plan of care. Client placed on continuous cardiac and pulse oximetry monitoring. NIBP monitoring applied. Pulse ox on. NIBP on. Door closed. Noise minimized. Warm blanket given. 01:43 Test, Urine Sent. tm6 02:01 Xiang James MD is Hospitalizing Provider. ec2 03:50 No provider procedures requiring assistance completed. ha1 03:50 Patient admitted, IV remains in place. ha1 04:47 Bert Stevenson MD is Attending Physician. ec2 Administered Medications: 02:19 Drug: vancoMYCIN IVPB 1 grams IVPB once over 2 hrs Route: IVPB; Infused Over: 2 hrs; tm6 Site: left forearm; 04:00 Follow up: Response: No adverse reaction; IV Status: Completed infusion; IV Intake: ha1 250ml 07:56 Not Given (Patient Refused): nicoderm cqpatch 21 mg/24 hr 1 patches Transdermal once ll1 Medication: 01:43 VIS not applicable for this client. tm6 Intake: 04:00 IV: 250ml; Total: 250ml. ha1 Outcome: 02:02 Decision to Hospitalize by Provider. ec2 03:40 Admitted to ER Hold. Please see [facility] for further documentation. ha1 03:40 Condition: stable 03:40 Instructed on the need for admit, Demonstrated understanding of instructions, 15:00 Patient left the ED. me1 Signatures: Dispatcher [employer] Walter Wilkes RN RN jb4 Emilie Grimm RN RN 1 Thais Coles RN RN me1 Bert Stevenson MD MD 2 Talib Wilks RN RN 6 Gaby Etienne Vivian vk Lewis, Lynsay RN ll1 Corrections: (The following items were deleted from the chart) 01:02 01:01 Allergies: No Known Allergies; jbShannan jb4
--- NOTE | 2023-07-09 02:48 | P.HP ---
Certification for Inpatient Patient admitted to: Inpatient With expected LOS: >2 Midnights Practitioner: I am a practitioner with admitting privileges, knowledge of patient current condition, hospital course, and medical plan of care. Services: Services provided to patient in accordance with Admission requirements found in Title 42 Section 412.3 of the Code of Federal Regulations Patient History Date of Service: 07/09/23 Reason for admission: Cellulitis History of Present Illness: 42 yrs old Female with past medical history of PCOS who came in with wound on the left lateral aspect of the ankle which as per the patient was started after being bitten by a spider and has been treated with antibiotic for the past 11 days as outpatient with p.o. clindamycin initially and then doxycycline without much benefits. Patient denies any fever or chills. No nausea vomiting or diarrhea. The wound has been not healing well and still remain elevated and irritated hence was brought to the ER. Denies any trauma. No chest pain or shortness of breath. Denies any history of diabetes or peripheral vascular disease. Denies any smoking Patient was assessed in the ER and was admitted for further management of failed outpatient management of cellulitis Allergies Penicillins Adverse Reaction (Verified 07/09/23 03:07) Nausea/Vomiting Sulfa (Sulfonamide Antibiotics) Adverse Reaction (Verified 07/09/23 03:08) Nausea/Vomiting Home medications list reviewed: Yes - Past Medical/Surgical History Past Medical History: Reviewed- Non-Contributory Past Surgical History: Reviewed- Non-Contributory - Family History Family History: Reviewed- Non-Contributory - Social History Smoking Status: Never smoker Review of Systems 10-point ROS is otherwise unremarkable Physical Examination - Vital Signs Temperature: 98.6 F Blood Pressure: 126/78 Pulse: 74 Respirations: 18 Pulse Ox (%): 94 - Physical Exam General: Alert, In no apparent distress, Oriented x3 HEENT: Atraumatic, Normocephalic, PERRLA Neck: Supple, JVD not distended Respiratory: Clear to auscultation bilaterally, Normal air movement Cardiovascular: Regular rate/rhythm, Normal S1 S2, No murmurs Capillary refill: <2 Seconds Gastrointestinal: Soft and benign, W/out hepatosplenomegaly, No ascites, No tenderness Musculoskeletal: No clubbing, No swelling Integumentary: Tenderness/swelling, Erythema Neurological: Normal speech, Normal strength at 5/5 x4 extr, Cranial nerves 3-12 intact, Normal reflexes 2+ Lymphatics: No axilla or inguinal lymphadenopathy - Studies Laboratory Data (last 24 hrs) 07/09/23 07/09/23 01:20 01:20 WBC 10.90 Hgb 13.2 Hct 37.8 Plt Count 251 Sodium 137 Potassium 4.3 BUN 14 Creatinine 1.00 Glucose 139 H Assessment and Plan - Problems (Diagnosis) (1) Cellulitis of left ankle Current Visit: Yes Status: Acute Plan: Failed outpatient management Cellulitis of left ankle X-ray showed no signs of osteomyelitis Pain control While on p.o. antibiotic. Patient with clindamycin doxycycline Started on vancomycin and Rocephin Obtain cultures Wound care consult in a.m. Monitor CBC CMP will obtain CRP in AM GI/DVT prophylaxis full code Discharge Plan: Home Plan to discharge in: 48 Hours - Advance Directives Does patient have a Living Will: No Does patient have a Durable POA for Healthcare: No - Code Status/Comfort Care Code Status: Full Code Time Spent Managing Pts Care (In Minutes): 48
[2023-07-09] MEDS: VANCOMYCIN 1 GM in NA CHLORIDE 0.9% 250 ML IVPB SCH (03:00)
[2023-07-09] MEDS: VANCOMYCIN 2 GM in NA CHLORIDE 0.9% 500 ML IVPB SCH (04:00)
[2023-07-09] MEDS: VANCOMYCIN 1 GM in NA CHLORIDE 0.9% 250 ML IVPB ONE (04:39)
[2023-07-09 05:23] VITALS: BMI 46.3
[2023-07-09] MEDS ORDERED: NICOTINE 21 MG/PAT TD ONE (06:19)
[2023-07-09] MEDS ORDERED: ENOXAPARIN 40 MG/0.4 ML SQ ONE (07:49)
[2023-07-09] MEDS ORDERED: NA CHLORIDE 0.9% 50 ML ONE (07:49)
[2023-07-09] MEDS ORDERED: CEFTRIAXONE 1000 MG/VIAL ONE (07:49)
[2023-07-09] MEDS ORDERED: HYDROCODONE/APAP 10/325 TAB ONE (07:49)
[2023-07-09] MEDS: HYDROCODONE/APAP 10/325 TAB PO PRN (07:54)
--- NOTE | 2023-07-09 08:54 | P.CNS ---
Date of Consult: 07/09/23 Reason for Consult: cellulitis, failed outpatient abx Chief Complaint: Cellulitis History of Present Illness: Patient is a 42 yo F with a PMH as listed below who presented to the ED with complaints of nonhealing left ankle wound. She reports noticing the wound ~3 weeks ago, and has since completed a course of oral clindamycin, recieved 3 injections of Rocephin and started on oral doxycycline by her PCP. CBC unremarkable. No fever. No surrounding erythema of left ankle wound. No purulent drainage or foul odor. Patient reports pain on palpation to wound. Patient also reports being seen at [facility] and [facility] ~2 days ago for which they sent her home with topical santyl. Allergies Penicillins Adverse Reaction (Verified 07/09/23 03:07) Nausea/Vomiting Sulfa (Sulfonamide Antibiotics) Adverse Reaction (Verified 07/09/23 03:08) Nausea/Vomiting Home medications list reviewed: Yes Home Medications: Alprazolam [Xanax] 0.5 mg PO PRN PRN 07/09/23 Buspirone HCl [Buspar] 1 PO DAILY 07/09/23 Review of Systems 10-point ROS is otherwise unremarkable Integumentary: As per HPI Physical Examination Temp Pulse Resp BP Pulse Ox 98.3 F 87 16 145/62 H 97 07/09/23 08:00 07/09/23 08:00 07/09/23 08:00 07/09/23 08:00 07/09/23 08:00 General: Alert, In no apparent distress, Oriented x3 HEENT: Atraumatic, Normocephalic Respiratory: Clear to auscultation bilaterally, Normal air movement Cardiovascular: Regular rate/rhythm Integumentary: Other (left lateral ankle wound with eschar, no purulent drainage or foul odor noted. 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 Unknown how wound first developed. Original erythema has since improved, however patient is concerned because it is slope tender/painful and has not decreased in size. - She has completed course of Clindamycin PO, recieved 3 injection of Rocephin and started on oral doxycyline by her PCP. - XR left foot 07/08: "No acute osseous findings" - [place] - CBC unremarkable. No fevers. Recommendations - Recommend dermatology or surgical consult to eval if wound needs to be debrided - Continue with local wound care: rinse with NS, apply iodosorb and cover with dressing. To be done every other day. - Keep leg elevated to help minimize swelling - Consider switch to Ciprofloxacin 750mg PO BID and Doxycycline 100mg PO BID x 7 days. Case discussed with Lesley Marshall
[2023-07-09] MEDS: ENOXAPARIN 40 MG/0.4 ML SQ SCH (09:00)
--- NOTE | 2023-07-09 09:37 | P.PN ---
Subjective Date of Service: 07/09/23 Chief Complaint: Cellulitis Admitted for spider bite, failed outpatient treatment for p.o. antibiotics for cellulitis, on vancomycin, Rocephin, wound care to eval - Physical Exam General: Alert, In no apparent distress, Oriented x3 HEENT: Atraumatic, Normocephalic, PERRLA Neck: Supple, JVD not distended Respiratory: Clear to auscultation bilaterally, Normal air movement Cardiovascular: Regular rate/rhythm, Normal S1 S2, No murmurs Capillary refill: <2 Seconds Gastrointestinal: Soft and benign, W/out hepatosplenomegaly, No ascites, No tenderness Musculoskeletal: No clubbing, No swelling Integumentary: Tenderness/swelling, Erythema Neurological: Normal speech, Normal strength at 5/5 x4 extr, Cranial nerves 3-12 intact, Normal reflexes 2+ Lymphatics: No axilla or inguinal lymphadenopathy Review of Systems Per [facility] Physical Examination - Vital Signs Temperature: 98.3 F Blood Pressure: 145/62 Pulse: 87 Respirations: 16 Pulse Ox (%): 97 - Studies Laboratory Data (last 24 hrs) 07/09/23 07/09/23 01:20 01:20 WBC 10.90 Hgb 13.2 Hct 37.8 Plt Count 251 Sodium 137 Potassium 4.3 BUN 14 Creatinine 1.00 Glucose 139 H Assessment And Plan - Plan Assessment and Plan - Problems (Diagnosis) Cellulitis of left ankle Failed outpatient management Cellulitis of left ankle X-ray showed no signs of osteomyelitis Pain control While on p.o. antibiotic. Patient with clindamycin doxycycline Started on vancomycin and Rocephin Obtain cultures Wound care consult in a.m. Monitor CBC CMP will obtain CRP in AM GI/DVT prophylaxis full code Disposition Home independent prior Discharge Plan: Home - Code Status/Comfort Care Code Status: Full Code Critical Care: No Time Spent Managing PTS Care (In Minutes): 35
[2023-07-09] MEDS: CEFTRIAXONE 1,000 MG in NA CHLORIDE 0.9% 50 ML IVPB SCH (09:40)
[2023-07-09] MEDS: MUPIROCIN 2% OINT 22GM TUBE TOP SCH (10:00)
[2023-07-09] MEDS ORDERED: MUPIROCIN 2% OINT 22GM TUBE TOP ONE (10:01)
[2023-07-09] MEDS: METHYLPREDNISOLONE 125 MG INJ IV ONE (10:49)
[2023-07-09] MEDS ORDERED: METHYLPREDNISOLONE 40 MG INJ ONE (11:30)
[2023-07-09] MEDS ORDERED: ACETAMINOPHEN 325 MG TABLET ONE (11:45)
[2023-07-09] MEDS ORDERED: ONDANSETRON 4 MG/2 ML VIAL ONE (11:45)
[2023-07-09] MEDS: ACETAMINOPHEN 325 MG TABLET PO PRN (11:57)
[2023-07-09] MEDS: ONDANSETRON 4 MG/2 ML VIAL IV PRN (11:57)
--- NOTE | 2023-07-09 12:42 | P.DS ---
Admission Date: 07/09/23 Discharge Date: 07/09/23 Reason for Admission: Cellulitis Brief History of Present Illness: 42 yrs old Female with past medical history of PCOS who came in with wound on the left lateral aspect of the ankle which as per the patient was started after being bitten by a spider and has been treated with antibiotic for the past 11 days as outpatient with p.o. clindamycin initially and then doxycycline without much benefits. Patient denies any fever or chills. No nausea vomiting or diarrhea. The wound has been not healing well and still remain elevated and irritated hence was brought to the ER. Denies any trauma. No chest pain or shortness of breath. Denies any history of diabetes or peripheral vascular disease. Denies any smoking - Physical Exam General: Alert, In no apparent distress, Oriented x3 HEENT: Atraumatic, Normocephalic, PERRLA Neck: Supple, JVD not distended Respiratory: Clear to auscultation bilaterally, Normal air movement Cardiovascular: Regular rate/rhythm, Normal S1 S2, No murmurs Capillary refill: <2 Seconds Gastrointestinal: Soft and benign, W/out hepatosplenomegaly, No ascites, No tenderness Musculoskeletal: No clubbing, No swelling Integumentary: Tenderness/swelling, Erythema Neurological: Normal speech, Normal strength at 5/5 x4 extr, Cranial nerves 3-12 intact, Normal reflexes 2+ Lymphatics: No axilla or inguinal lymphadenopathy Hospital Course: Patient tolerating diet, stable for discharge to home with follow-up appointment with primary care physician. PROBLEM: Cellulitis left akle Take antibiotics as prescribed Take probiotic with antibiotics to avoid C diff infection take over the counter tylenol, advil as directed on bottle for pain keep wound clean and dry, cover if needed CT ankle IMPRESSION: Edema within the subcutaneous tissues of the ankle consistent with a cellulitis. An abscess is not seen. No evidence of osteomyelitis Continue home medicines as previously prescribed GOAL: Clear understanding of disease process INSTRUCTIONS: Physician Discharge Instructions: -DC IV and DC home -Follow-up with PCP in 1 to 2 weeks -Please call Dr. Guzman at [phone] if any questions regarding hospital stay -Please call nursing station at [phone] if any nursing or medication questions -Return to the emergency room if symptoms worsen Diet: ADA, low sodium Activity: Fall precautions <Mima Geiger - Last Filed: 07/09/23 13:51> Admission Date: 07/09/23 Discharge Date: 07/09/23 Hospital Course: Patient's cellulitis has improved. Erythema is much better. Discharge on home on oral antibiotics with outpatient follow-up. Continue with Bactroban ointment for the next 2 weeks. <Vijay Guzman - Last Filed: 07/12/23 13:13> Disposition: ROUTINE DISCHARGE Vital Signs/Physical Exam: Temp Pulse Resp BP Pulse Ox 97.3 F 83 17 133/64 96 07/09/23 11:53 07/09/23 11:53 07/09/23 11:53 07/09/23 11:53 07/09/23 11:53 Laboratory Data at Discharge: WBC 10.90 thou/uL (4.3-10.9) 07/09/23 01:20 Hgb 13.2 g/dL (12.0-15.0) 07/09/23 01:20 Hct 37.8 % (36.0-45.0) 07/09/23 01:20 Plt Count 251 thou/uL (152-406) 07/09/23 01:20 Sodium 137 mEq/L (136-145) 07/09/23 01:20 Potassium 4.3 mEq/L (3.5-5.1) 07/09/23 01:20 BUN 14 mg/dL (7-18) 07/09/23 01:20 Creatinine 1.00 mg/dL (0.55-1.02) 07/09/23 01:20 Glucose 139 mg/dL (74-106) H 07/09/23 01:20 <Mima Geiger - Last Filed: 07/09/23 13:51> Vital Signs/Physical Exam: Temp Pulse Resp BP Pulse Ox 98.4 F 74 16 124/64 96 07/09/23 15:00 07/09/23 15:00 07/09/23 15:00 07/09/23 15:00 07/09/23 11:53 Laboratory Data at Discharge: WBC 10.90 thou/uL (4.3-10.9) 07/09/23 01:20 Hgb 13.2 g/dL (12.0-15.0) 07/09/23 01:20 Hct 37.8 % (36.0-45.0) 07/09/23 01:20 Plt Count 251 thou/uL (152-406) 07/09/23 01:20 Sodium 137 mEq/L (136-145) 07/09/23 01:20 Potassium 4.3 mEq/L (3.5-5.1) 07/09/23 01:20 BUN 14 mg/dL (7-18) 07/09/23 01:20 Creatinine 1.00 mg/dL (0.55-1.02) 07/09/23 01:20 Glucose 139 mg/dL (74-106) H 07/09/23 01:20 <Vijay Guzman - Last Filed: 07/12/23 13:13> Time spent managing pt's care (in minutes): 55 <Mima Geiger - Last Filed: 07/09/23 13:51> <Vijay Guzman - Last Filed: 07/12/23 13:13> Home Medications: Buspirone HCl [Buspar] 1 PO DAILY 07/09/23 Ciprofloxacin HCl [Cipro] 750 mg PO BID 7 Days #14 tab 07/09/23 Doxycycline Hyclate 100 mg PO BID 7 Days #14 tab 07/09/23 Mupirocin Oint [Bactroban 2% Ointment*] 1 appl TOP BID 7 Days #1 tube 07/09/23 predniSONE [Deltasone] 20 mg PO DAILY #5 tab 07/09/23 New Medications: Mupirocin Oint [Bactroban 2% Ointment*] 1 appl TOP BID 7 Days #1 tube Ciprofloxacin HCl [Cipro] 750 mg PO BID 7 Days #14 tab Doxycycline Hyclate 100 mg PO BID 7 Days #14 tab predniSONE [Deltasone] 20 mg PO DAILY #5 tab Physician Discharge Instructions: Patient tolerating diet, stable for discharge to home with follow-up appointment with primary care physician. PROBLEM: Cellulitis Take antibiotics as prescribed Take probiotic with antibiotics to avoid C diff infection take over the counter tylenol, advil as directed on bottle for pain keep wound clean and dry, cover if needed Continue home medicines as previously prescribed GOAL: Clear understanding of disease process INSTRUCTIONS: Physician Discharge Instructions: -DC IV and DC home -Follow-up with PCP in 1 to 2 weeks -[facility] with [facility] if skin wound is not healing appropriately -Please call Dr. Guzman at [phone] if any questions regarding hospital stay -Please call nursing station at [phone] if any nursing or medication questions -Return to the emergency room if symptoms worsen Diet: ADA, low sodium Activity: Fall precautions Followup: Gela Best MD [Primary Care Provider] -
--- NOTE | 2023-07-09 13:33 | RAD REPORT ---
EXAM DESCRIPTION: CT - Ankle Left W Con - 07/09/2023 1:21 pm CLINICAL HISTORY: Left ankle pain and swelling. Cellulitis COMPARISON: X-ray July 09, 2023 TECHNIQUE: Computed axial tomography left ankle obtained. Coronal and sagittal reconstruction perfor med. 100 cc [id number] scans are performed using dose optimization technique as appropriate and may include automated exposure control or mA/KV adjustment according to patient size. FINDINGS: Edema is present within the subcutaneous tissues. This is most marked laterally. No soft tissue abscess seen. No bony destruction noted. No gross abnormality of the musculature. Large calcaneal spur IMPRESSION: Edema within the subcutaneous tissues of the ankle consistent with a cellulitis. An abscess is not seen. No evidence of osteomyelitis
[2023-07-09 15:35] VITALS: BP 124/64; TEMP 98.4; O2SAT 100
[2023-07-09] MEDS ORDERED: DOXYCYCLINE 100 MG CAP PO SCH (21:00)
[2023-07-09] MEDS ORDERED: MUPIROCIN 2% OINT 22GM TUBE TOP SCH (21:00)
[2023-07-09] MEDS ORDERED: CIPROFLOXACIN HCL 500 MG TAB PO SCH (21:00)
[2023-07-10] MEDS ORDERED: VANCOMYCIN 2 GM in NA CHLORIDE 0.9% 500 ML IVPB SCH (05:00)
--- NOTE | 2023-07-10 20:24 | RAD REPORT ---
EXAM DESCRIPTION: RAD - Ankle Left 3 View - CLINICAL HISTORY: Soft tissue injury COMPARISON: None. TECHNIQUE: XR ANKLE 3 OR MORE VIEWS LEFT 07/09/2023 1:04 AM CDT FINDINGS: There is no fracture. Joint spaces are preserved. There is mild to moderate diffuse soft tissue swelling. There is a moderate calcaneal spur. IMPRESSION: No acute osseous findings. Electronically signed by: Girish Oswald MD 07/09/2023 01:52 AM CDT Due to temporary technical issues with the PACS/Fluency reporting system, reports are being signed by the in house radiologists without review as a courtesy to insure prompt reporting. The interpreting radiologist is fully responsible for the content of the report.
== END 2023-07-09 14:57 | disposition home or self-care (01) ==
LOC: ER 00:35 → INTOOBSV 02:42 → ERHOLD 02:42
PROVIDERS: ADMIT Family Medicine; ATTEND Hospitalist
DX: L03.116 Cellulitis of left lower limb (principal); R60.9 Edema, unspecified; E28.2 Polycystic ovarian syndrome; Z88.0 Allergy status to penicillin
CPT/HCPCS: 96365; 85025; 80048; 36415; 81025; 73701; 73610; 99285; 96366; Q9967; J1650; J2405; J7050 ×2; J2920; J0696; G0378; J7040